=== PATIENT | male | born 1995 | race African-American/Black ===

== ENCOUNTER 2018-11-23 07:49 | Day surgery (SDC) | payer OTHER ==
[~2018-11-23] VITALS: Ht 165.1 cm; Wt 68.0 kg
[2018-11-23 08:16] VITALS: BP 140/77; PULSE 56; TEMP 98.4
[2018-11-23 09:20] VITALS: BP 125/77; PULSE 72; TEMP 97.7
--- NOTE | 2018-11-23 09:20 | NUR ---
The patient is wheeled to [place] [facility] via cart by Nallely AGUILERA. The patient ambulates to the chair with a steady gait and nurse standby assist. The patient's vital signs are stable. Report is obtained. The patient states he is sleepy and would like to rest before he attempts to eat or drink anything. The patient's is at the bedside and the call light is within reach. Will continue to monitor.
[2018-11-23 09:35] VITALS: BP 123/68; PULSE 68
--- NOTE | 2018-11-23 09:35 | NUR ---
The patient's vital signs are stable. The patient requests apple juice and a muffin which is brought to him at this time. The call light is within reach and the patient's is at the bedside. Will continue to monitor.
[2018-11-23 09:50] VITALS: BP 130/78; PULSE 86
--- NOTE | 2018-11-23 09:50 | NUR ---
The patient's vital signs are stable. The patient tolerated the apple juice and has not eaten the muffin at this time. The patient denies any complaints or concerns. The call light is within reach and the patient's is at the bedside. Will continue to monitor.
[2018-11-23 10:05] VITALS: BP 118/86; PULSE 65
--- NOTE | 2018-11-23 10:05 | NUR ---
The patient's vital signs are stable. The patient tolerated the muffin and juice and denies any complaints or concerns. The patient has talked to Dr. Gomez and states he is ready to be discharged home. The discharge instructions will be reviewed with the patient.
--- NOTE | 2018-11-23 10:07 | NUR ---
The discharge instructions are reviewed with the patient and his and all questions are answered. The IV is removed and the tip is intact and a dressing is applied. The patient changes into his personal clothes to be discharged home.
--- NOTE | 2018-11-23 10:15 | NUR ---
The patient is wheeled to the patient entrance via wheelchair to be discharged home via personal vehicle by his . The patient is sent home with his discharge instructions and education packet.
== END 2018-11-23 10:15 | disposition home or self-care (01) ==
LOC: SDCO 07:49
DX: K59.00 Constipation, unspecified (principal); R11.2 Nausea with vomiting, unspecified; D64.9 Anemia, unspecified
CPT/HCPCS: J2250; J2405; J3010; J7030